=== PATIENT | male | born 1990 | race Caucasian/White ===

== ENCOUNTER 2022-09-27 12:22 | Emergency (ER) | payer MEDICAID, OTHER ==
[~2022-09-27] VITALS: Ht 177.8 cm; Wt 62.7 kg
[2022-09-27 12:27] VITALS: BP 135/78
== END 2022-09-27 13:38 | disposition home or self-care (01) ==
LOC: ER 12:23
DX: Z00.00 Encounter for general adult medical examination without abnormal findings (principal); F15.10 Other stimulant abuse, uncomplicated; F12.90 Cannabis use, unspecified, uncomplicated; Z72.89 Other problems related to lifestyle; Z88.8 Allergy status to other drugs, medicaments and biological substances
CPT/HCPCS: 99281

== ENCOUNTER 2024-12-06 13:49 | Emergency (ER) | payer MEDICAID ==
[~2024-12-06] VITALS: Ht 177.8 cm; Wt 68.9 kg
[2024-12-06 14:08] VITALS: BP 136/89; PULSE 87; RESP 16; O2SAT 98
--- NOTE | 2024-12-06 16:58 | RADIOLOGY REPORT ---
DI ANKLE, COMPLETE(3VW MIN), INDICATION: pain TECHNICAL DATA:Frontal , oblique and lateral views were obtained of the left ankle. COMPARISON: None FINDINGS: No fracture is identified. Joint spaces are maintained. Alignment is anatomic. Soft tissues are swo llen. IMPRESSION: No acute fracture or dislocation of the left ankle. Small ossicle at the distal fibula could be from old trauma.
--- NOTE | 2024-12-06 17:00 | Physician Documentation ---
History of Present Illness ~ Chief Complaint: Medical Clearance Stated Complaint: ANKLE PAIN Time Seen by MD: 16:25 [facility] 74-year-old male presents to the ED with a complaint medical clearance sudden go back to work. States one week ago fell off his skateboard injury in his left ankle. He denies any current complaints stage III has no difficulty walking a running and has no point tenderness Tetanus within 5 years?: No (UNK) Medication Reconciliation Allergies: Uncoded Allergies: ERYTHROMYCIN (Allergy, Severe, Anaphylaxis as child, 09/27/22) Past Medical History Past Medical History: No Pertinent History Past Surgical History: noncontributory Alcohol Use: Occasionally Drug Use: marijuana Lives In: Home Occupation: employed Review of Systems All Other Systems at this time: Reviewed and Negative ROS As stated above in the HPI, otherwise all systems are reviewed and negative. Physical Exam Vital Signs: Temperature: 98.2, Source: Oral, Heart Rate: 87, Respiratory Rate: 16, BP: 136/89, Pulse Oximetry: 98, Weight: 68.900 Oxygen Flow Rate: 0 Physical Exam General: Alert, no apparent distress. Respiratory: Lungs clear, no respiratory distress. Neurologic: Oriented x4. Psychiatric: Normal mood and affect. Skin: Normal color, warm and dry. No edema, no ecchymosis. Progress Results/Orders Results/Orders Orders - KILO ALFREDO RUBBER BOOTS AND SHOES REPAIRER Ankle, Complete(3vw Min) (12/06/24 16:26) Completed Orders - KILO ALFREDO RUBBER [employer] REPAIRER Ankle, Complete(3vw Min) (12/06/24 16:26) Vital Signs 12/06/24 12/06/24 14:08 17:06 Temp 98.2 98.2 Pulse 87 Resp 16 B/P (MAP) 136/89 Pulse Ox 98 O2 Flow Rate 0 Medical Decision Making Findings Who presents with no medical complaints at this time. I am going to hold including him for work as during my exam there was no tenderness on he had normal range of motion. Differential Dx:Considerations: Include: Intoxication-Alcohol, Intoxication- Other drug, Personality disorder, Substance abuse disorder, Acute delirium, Closed head injury, Cervical spine injury, Skull fracture, Fracture(s), Ab rasion, Contusion, Foreign body, Hematoma, Laceration, Alcohol withdrawl syndrom, Encephalopathy, Hepatitis, Medically stable, Other Departure Disposition: 01 HOME / SELF CARE / HOMELESS Impression: Primary Impression: General medical exam Condition: Stable Discharge Instructions: Medical Screening Exam Additional Instructions: Patient is medically cleared for secondary to previous left ankle injury Referrals: NO PRIMARY CARE PROVIDER (PCP) Education Educated: Patient Educated regarding: diagnosis Signature Scribe Signature: v Attestation: Scribed for Kilo Alfredo Construction Manager by Kilo Gregory NP . 12/06/24 19:21 KILO ALFREDO NP Dec 06, 2024 17:00
[2024-12-06 17:06] VITALS: TEMP 98.2
== END 2024-12-06 17:09 | disposition home or self-care (01) ==
LOC: ER 13:49
DX: Z00.8 Encounter for other general examination (principal); M25.572 Pain in left ankle and joints of left foot; F12.90 Cannabis use, unspecified, uncomplicated; V00.131A Fall from skateboard, initial encounter; Y93.51 Activity, roller skating (inline) and skateboarding; Y92.89 Other specified places as the place of occurrence of the external cause; Y99.8 Other external cause status
CPT/HCPCS: 73610; 99283

== ENCOUNTER 2025-03-15 09:21 | Emergency (ER) | payer MEDICAID ==
[~2025-03-15] VITALS: Ht 177.8 cm; Wt 70.7 kg
[2025-03-15 09:23] VITALS: BP 122/84; PULSE 100; RESP 18; O2SAT 100
--- NOTE | 2025-03-15 10:40 | Physician Documentation ---
History of Present Illness ~ Chief Complaint: Laceration Stated Complaint: L ARM LAC Time Seen by MD: 10:17 HPI 34-year-old male presents to the ED after injuring himself with sheet metal this morning causing relatively large laceration on the medial aspect of his left wrist. Patient does not know if he is up-to-date in his tetanus. Day of Onset: Mar 15, 2025 Tetanus Within 5 Years: No (UNK) Medication Reconciliation Allergies: Coded Allergies: erythromycin base (Verified Allergy, Unknown, 03/15/25) Uncoded Allergies: ERYTHROMYCIN (Allergy, Severe, Anaphylaxis as child, 09/27/22) Scheduled Cephalexin*Monohydrate* (Keflex*), 1 CAP PO QID Past Medical History Past Medical History: No Pertinent History Past Surgical History: noncontributory Alcohol Use: Occasionally Drug Use: marijuana Lives In: Home Occupation: employed Review of Systems All Other Systems at this time: Reviewed and Negative ROS As stated above in the HPI, otherwise all systems are reviewed and negative. Physical Exam Vital Signs: Temperature: 97.5, Source: Temporal, Heart Rate: 100, Respiratory Rate: 18, BP: 122/84, Pulse Oximetry: 100, Weight: 70.700 Oxygen Flow Rate: 0 Physical Exam General: Alert, no apparent distress. HEENT: PERRL, EOMI, no injection, moist mucous membranes. Extremities leftmedial aspect ofleft wrist 10 cm laceration bleeding controlled no evidence of pulsatile bleeding. Neurologic: Oriented x4. Psychiatric: Normal mood and affect. Skin: Normal color, warm and dry. No edema, no ecchymosis. Procedures Laceration/Wound Repair Laceration : Suture Size/Type: 4-0 Number Deep Layer Sutures: 2 Procedure Note Long running stitch with a single interrupted stitch in the center to prevent any dehiscence Progress Results/Orders Results/Orders Orders - KILO ALFREDO NP Laceration/I&D Tray Set Up (03/15/25 ) Completed Orders - KILO ALFREDO KITCHEN BATH DESIGNER Lidocaine 1% 30ml Vial (Xylocaine 1% Via (03/15/25 10:34) Tetanus/Pertuss/Diph Acell/Pf (Boostrix (03/15/25 11:25) Vital Signs 03/15/25 09:23 Temp 97.5 Pulse 100 Resp 18 B/P (MAP) 122/84 Pulse Ox 100 O2 Flow Rate 0 Medical Decision Making Additional information obtaine: N/A Findings Patient tolerated procedure well hand wound was easily well approximated. 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 Addition based on location the laceration feel it is prudent to prescribe him oral antibiotics to prevent any further infection. So gave him a tetanus shot Differential Dx:Considerations: Include: Abrasion, Avulsion, Contusion, Laceration, Fracture, Hematoma, Neurovascular injury, Retained foreign body, Other Departure Disposition: HOME / SELF CARE / HOMELESS Impression: Primary Impression: Laceration Condition: Improved Discharge Instructions: Laceration Care, Adult, [id number] Additional Instructions: Have sutures removed in 7-10 days Take antibiotics as prescribed Referrals: NO PRIMARY CARE PROVIDER (PCP) Prescriptions Cephalexin*Monohydrate* (Keflex*) 500 Mg Capsule 1 CAP PO QID, #40 CAP Prov: KILO ALFREDO KITCHEN BATH DESIGNER 03/15/25 Education Educated: Patient Educated regarding: diagnosis Signature Scribe Signature: v ff Attestation: Scribed for Kilo Alfredo Undertaker Assistant by Kilo Alfredo - SMILEY . 03/15/25 10:54 KILO ALFREDO NP Mar 15, 2025 10:40
[2025-03-15] MEDS: LIDOcaine 1% 30ml preserv. free vial SQ STA (11:04)
[2025-03-15] MEDS ORDERED: CEPH-585 PO (11:22)
[2025-03-15] MEDS: TETanus/Pertussis (Acell)/Diphther VAC/PF (Tdap-Adult) 0.5ml syringe IMVAC ONE (11:40)
[2025-03-15 11:44] VITALS: TEMP 98
== END 2025-03-15 11:45 | disposition home or self-care (01) ==
LOC: ER 09:21
DX: S41.112A Laceration without foreign body of left upper arm, initial encounter (principal); F12.90 Cannabis use, unspecified, uncomplicated; Z72.89 Other problems related to lifestyle; Z88.1 Allergy status to other antibiotic agents; W26.8XXA Contact with other sharp object(s), not elsewhere classified, initial encounter; Y93.89 Activity, other specified; Y92.89 Other specified places as the place of occurrence of the external cause; Y99.8 Other external cause status
CPT/HCPCS: 12004; 90471; 90715; 99283; J7030; A6258; A6449